=== PATIENT | male | born 1970 | race Caucasian/White ===

== ENCOUNTER 2019-11-15 22:58 | Inpatient (IN) | payer OTHER ==
[~2019-11-15] VITALS: Ht 190.5 cm; Wt 97.5 kg
[2019-11-15 23:23] LABS: BASOPHILS ABSOLUTE AUTO 0.06 K/mm3 (0.00-0.23); BASOPHILS PERCENT AUTO 1 % (0-2); EOSINOPHILS ABSOLUTE AUTO 0.27 K/mm3 (0.00-0.68); EOSINOPHILS PERCENT AUTO 4 % (0-6); Hematocrit 48.7 % (37.0-53.0); Hemoglobin 16.3 g/dL (13.5-17.5); IMMATURE GRAN PERCENT AUTO 1 % (0-1); LYMPHOCYTES ABSOLUTE AUTO 2.22 K/mm3 (0.84-5.20); LYMPHOCYTES PERCENT AUTO 29 % (21-46); MONOCYTES ABSOLUTE AUTO 0.56 K/mm3 (0.16-1.47); MONOCYTES PERCENT AUTO 7 % (4-13); Mean Corpuscular HGB 31.5 pg (26.0-34.0); Mean Corpuscular HGB Conc 33.5 g/dL (31.5-36.5); Mean Corpuscular Volume 94 fL (80-100); Mean Platelet Volume 12.5 fL (9.1-12.4); NEUTROPHILS PERCENT AUTO 58 % (41-73); Platelet Count 206 K/mm3 (150-400); RDW Coefficient Variation 12.6 % (11.7-14.2); RDW Standard Deviation 43.5 fL (35.1-46.3); Red Blood Cell Count 5.18 M/mm3 (4.30-5.90); White Blood Cell Count 7.71 K/mm3 (4.00-11.30)
[2019-11-15 23:35] LABS: Ethanol (Alcohol), Blood, Med <3 mg/dL
[2019-11-15 23:38] LABS: International Normalized Ratio 0.98; Prothrombin Time Results 10.5 Sec (9.7-11.5)
[2019-11-15 23:47] LABS: Alanine Aminotransfer (ALT/SGP 92 U/L (12-78); Albumin, Blood 4.1 g/dL (3.4-5.0); Albumin/Globulin Ratio 1.1 (0.8-1.8); Alk Phos 82 U/L (50-136); Anion Gap 7 mmol/L (6-16); Aspartate Aminotrans (AST/SGOT 68 U/L (12-37); Bilirubin, Total 0.3 mg/dL (0.1-1.0); Blood Urea Nitrogen 18 mg/dL (8-24); Bun/Creatinine Ratio 19.3 (12.0-20.0); CO2, Blood 25 mmol/L (21-32); Calcium, Blood 8.6 mg/dL (8.5-10.1); Chloride, Blood 108 mmol/L (98-108); Creatinine, Blood 0.93 mg/dL (0.60-1.20); Globulin, Blood 3.6 g/dL (2.2-4.0); Glomerular Filtration Rate >60 (60-); Glucose, Blood 180 mg/dL (70-99); Potassium, Blood 4.8 mmol/L (3.5-5.5); Sodium, Blood 140 mmol/L (136-145); Total Protein, Blood 7.7 g/dL (6.4-8.2)
[2019-11-16 00:02] LABS: PCO2 Arterial 46.5 mmHg (35-45); PO2 Arterial 84.2 mmHg (80-100); pH Blood Arterial 7.32 (7.35-7.45)
[2019-11-16 00:33] LABS: Source, Urine Catheter
[2019-11-16 00:36] LABS: Bilirubin, Urine Neg (Neg); Blood, Urine 5+ (Neg); Glucose Qualitative, Urine 1+ (Neg); Ketones, Urine 1+ (Neg); Leukocyte Esterase, Urine 1+ (Neg); Nitrite, Urine Neg (Neg); Protein, Urine 2+ (Neg); Specific Gravity, Urine 1.025 (1.003-1.022); Urobilinogen, Urine NORM (Normal)
[2019-11-16 00:41] LABS: Appearance, Urine Hazy (Clear); Color, Urine Yellow (P-Yellow)
[2019-11-16 00:42] LABS: Bacteria Mod /hpf; Mucus Light (0-Heavy); Red Blood Cells, Urine 25-50 /hpf (0-2); Squamous Epithelial Cells Few /hpf (Few)
[2019-11-16 00:48] LABS: U Amphetamine Screen Not Detected; U Barbituate Screen Not Detected; U Benzodiazapine Screen Not Detected; U Buprenorphine Screen Not Detected; U Cannabinoids Screen Not Detected; U Cocaine Screen Not Detected; U Methadone Screen Not Detected; U Methamphetamine Screen Not Detected; U Opiates Screen Not Detected; U Oxycodone Screen Not Detected; U Phencyclidine Screen DETECTED; U Propoxyphene Screen Not Detected
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
[2019-11-16 03:21] LABS: Base Excess Venous -0.5 mmol/L; Bicarbonate Venous 22.6 mmol/L (24.0-30.0); PCO2 Venous 52.6 mmHg (38-42); PO2 Venous 39.9 mmHg (38-42)
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
--- NOTE | 2019-11-16 08:00 | NUR ---
PT REMAINS SEDATED, INTUBATED, AND RESTRAINED. C-COLLAR REMAINS IN PLACE. PT MOVES EXTREMITES SPONTANEOUSLY. GRIMACE TO VOICE AND WITH TACTILE STIMULI. SOFT WRIST RESTRAINTS REMAIN IN PLACE TO PREVENT ACCIDENTAL EXTUBATION. VS WDL. ETT TO VENT: AC16, TV450, PEEP 5, FIO2 30%-PT SATS>90%. LUNGS DIMINISHED IN BASES L>R. OGT TO LIS WITH MODERATE AMOUNT OF BROWN, LIQUID DRAINAGE. CLAUDIO TO BSD WITH ADEQUATE AMOUNT OF CLEAR, YELLOW URINE OUTPUT. MULTIPLE ABRASIONS TO RIGHT SIDE. PHOTOS AND WOUND CARE DONE BY KATIE HUERTA-SEE WOUND CARE FLOW SHEET AND PHOTOS.
--- NOTE | 2019-11-16 08:25 | NUR ---
PROPOFOL DRIP TITRATED DOWN TO 25 MCG/KG/MIN IN ANTICPATION FOR SBS.
--- NOTE | 2019-11-16 09:00 | NUR ---
PROPOFOL DRIP OFF. SBT INITIATED. DR. SOLIMAN AND RT AT BEDSIDE.
--- NOTE | 2019-11-16 09:06 | NUR ---
SKIN CARE: ALL ABRASIONS (FOREHEAD, RT EAR, RT ELBOW, RT POSTERIOR/LATERAL HAND CLEANSED WITH SKIN TEGRITY, PICTURES TAKEN AND PLACED ON CHART, AND ABRASIONS COVERED WITH FOAM DRESSING.
--- NOTE | 2019-11-16 09:30 | NUR ---
PT OPENING EYES TO VOICE AND FOLLOW SOME SIMPLE COMMANDS. PT EXTUBATED AND PLACED ON RA-SATS>90%. PT ORIENTED PERSON AND AWARE THAT HE IS IN "[place]" RESTRAINTS DISCONTINUED. CALL LIGHT WITH IN REACH. PT SLEEPS WHEN NOT DISTURBED.
--- NOTE | 2019-11-16 12:00 | NUR ---
PT CONTINUES TO SLEEP MAINLY WHEN NOT DISTURBED. ORIENTED TP PERSON- UNABLE TO RECALL PLACE/EVENTS THAT OCCURED PRIOR TO HOSPITALIZATION. PT IS GENERALLY WEAK. ATTEMPTING TO FOLLOW COMMANDS. ENCOURAGED COUGH AND DEEP BREATHING. HOWEVER, PT COUGH IS VERY WEAK. LUNGS REMAIN DIMINISHED IN BASES L>R. MAINTAINS SATS>90% ON RA. RESP SHALLOW, BUT NO NOTED SOB OR INCREASED WOB. PT NPO FOR NOW.
--- NOTE | 2019-11-16 12:40 | NUR ---
DR. GRIMM UPDATED REGARDING HR TRENDING 100-110'S. ALSO, MADE AWARE THAT CLAUDIO HAD PURULENT DRAINAGE AROUND MEATUS THIS AM AND THAT URINE TO UROMETER NOW LOOKS CLOUDY. UA/CULTURE SENT ON ADMIT. NO NEW ORDERS AT THIS TIME. DR. GRIMM REQUESTS THAT DR. GONCALVES BE NOTIFIED OF ABOVE FINDINGS.
--- NOTE | 2019-11-16 15:53 | NUR ---
PT CONTINUES TO BE DROWSY. OPENS EYS TO VOICE-FOLLOWING COMMANDS. SLOW TO RESPOND. ABLE TO STATE NAME AND . AWARE THAT HE IS IN THE HOSPITAL. GENERALIZED WEAKNESS NOTED, BUT PT ABLE TO MOVE ALL 4 EXTREMITIES. LUNGS REMAIN DIMINISHED IN BASES L>R. PT COUGH EFFORT HAS IMPROVED, BUT IS STILL WEAK AND NONPRODUCTIVE. HR TRENDING 90'S. TEMP 99.3. DR. GONCALVES HERE TO SEE PT. UPDATED TO CURRENT VS ANS STATUS. AWARE OF THE PURULENT DRAINAGE AROUND THE CLAUDIO THIS AM AND OF THE CLOUDY URINE. ANTIBIOTIC ORDERED-SEE EMAR.
[2019-11-16] MEDS ORDERED: VENL150ER PO (17:06)
--- NOTE | 2019-11-16 19:10 | NUR ---
ASSUME CARE:BEDSIDE REPORT RECIEVED FROM MALCOLM OFF GOING RN. MONITOR INTACT SHOWING SINUS RHYTHM HEART RATE 80'S. AWAKENS TO VERBAL STIMULI SLOW TO RESPOND, ABLE TO STATE NAME AND BIRTHDATE. DENIES PAIN STATES" DOZES OFF EASY" LUNG SOUNDS CLEAR UPPER LOBES WITH DECREASED SOUNDS IN THE BASES RESPIRATIONS SHALLOW SPO2 94-98% ON ROOM AIR. ABDOMEN SOFT WITH BOWEL SOUNDS FOUR QUADS TEMP PROBE CLAUDIO PATENT DRIANING CLOUDY URINE. PAS TO LOWER EXTREMITIES. DRESSINGS INTACT TO ABRASIONS. FOREHEAD , KNEE ,EAR, AND ELBOW. STATES "I HAVE A BUMP ON MY HEAD" REPOSITIONS SELF IN BED. CONTINUE TO MONITOR AND REPORT CHANGE IN PATIENT CONDITION
[2019-11-17 03:47] LABS: BASOPHILS ABSOLUTE AUTO 0.04 K/mm3 (0.00-0.23); BASOPHILS PERCENT AUTO 1 % (0-2); EOSINOPHILS ABSOLUTE AUTO 0.25 K/mm3 (0.00-0.68); EOSINOPHILS PERCENT AUTO 3 % (0-6); Hematocrit 39.9 % (37.0-53.0); Hemoglobin 13.8 g/dL (13.5-17.5); IMMATURE GRAN ABSOLUTE AUTO 0.01 K/mm3 (0.00-0.10); IMMATURE GRAN PERCENT AUTO 0 % (0-1); LYMPHOCYTES ABSOLUTE AUTO 2.01 K/mm3 (0.84-5.20); LYMPHOCYTES PERCENT AUTO 23 % (21-46); MONOCYTES ABSOLUTE AUTO 0.67 K/mm3 (0.16-1.47); MONOCYTES PERCENT AUTO 8 % (4-13); Mean Corpuscular HGB 31.6 pg (26.0-34.0); Mean Corpuscular HGB Conc 34.6 g/dL (31.5-36.5); Mean Platelet Volume 11.6 fL (9.1-12.4); NEUTROPHILS ABSOLUTE AUTO 5.84 K/mm3 (1.96-9.15); NEUTROPHILS PERCENT AUTO 66 % (41-73); Platelet Count 159 K/mm3 (150-400); RDW Coefficient Variation 12.5 % (11.7-14.2); RDW Standard Deviation 41.5 fL (35.1-46.3); Red Blood Cell Count 4.37 M/mm3 (4.30-5.90); White Blood Cell Count 8.82 K/mm3 (4.00-11.30)
[2019-11-17 03:48] LABS: Mean Corpuscular Volume 91 fL (80-100)
[2019-11-17 04:05] LABS: Alanine Aminotransfer (ALT/SGP 51 U/L (12-78); Alk Phos 68 U/L (50-136); Anion Gap 6 mmol/L (6-16); Aspartate Aminotrans (AST/SGOT 33 U/L (12-37); Bilirubin, Total 0.5 mg/dL (0.1-1.0); Blood Urea Nitrogen 12 mg/dL (8-24); Bun/Creatinine Ratio 17.6 (12.0-20.0); CO2, Blood 26 mmol/L (21-32); CPK Creatine Kinase 222 U/L (39-308); Calcium, Blood 7.8 mg/dL (8.5-10.1); Chloride, Blood 112 mmol/L (98-108); Creatinine, Blood 0.68 mg/dL (0.60-1.20); Globulin, Blood 2.9 g/dL (2.2-4.0); Glomerular Filtration Rate >60 (60-); Glucose, Blood 88 mg/dL (70-99); Magnesium, Blood 1.9 mg/dL (1.6-2.4); Phosphorus, Blood 2.3 mg/dL (2.5-4.9); Potassium, Blood 3.3 mmol/L (3.5-5.5); Sodium, Blood 144 mmol/L (136-145); Total Protein, Blood 5.9 g/dL (6.4-8.2)
--- NOTE | 2019-11-17 05:57 | NUR ---
SHIFT SUMMARY: RESTS QUIETLY WHEN UNDISTURBED. MONITOR INTACT SHOWING SINUS RHYTHM. HEART RATE 70'S-80'S. LUNG SOUNDS CLEAR UPPEROBES DECREASED SOUNDS IN THE BASES. RESPRITATIONS REGULAR AND EASY ON ROOM AIR SPO2 94-98% ABDOMEN SOFT WITH BOWEL SOUNDS FOUR QUADS.PASSING FLATUS AND BELCHING TR BAND SITE CLEAR WITH OCCLUSIVE DRESSING INTACT. GAIT STEADY WITH MIN STANDBY ASSIST VOIDS ZAID URINE CONTINUE TO MONITOR AND REPORT CHANGE IN PATIENT CONDITION
--- NOTE | 2019-11-17 10:30 | NUR ---
CLAUDIO DISCONTINUED. URINAL PLACED AT BEDSIDE. CALL LIGHT WITHIN REACH. PT VERBALIZES UNDERSTANDING OF THE USE OF THE CALL SYSTEM AND WILL CALL PRN.
--- NOTE | 2019-11-17 10:54 | NUR ---
REPORT GIVEN TO KATIE TAN IN PREP TO TRANSFER PT TO ROOM 229. NO ACUTE CHANGES. PT RESTING QUIETLY WHEN NOT DISTURBED. HAS NOT VOIDED SINCE CLAUDIO DISCONTINUED.
--- NOTE | 2019-11-17 11:42 | NUR ---
PT ARRIVED TO [facility] FROM ICU TRANSFERRED W/SBA TO BED FROM . UNSTEADY ON FEET. INSTRUCTED MANAGER TRANSPORTATION LIGHT USE AND ACTIVATED BED ALARM FOR SAFETY. PT REPORTS 6/[address] GONCALVES AND OBTAINED ORDERS FOR IBUPROFEN. LCA, RESPIRATIONS E/U ON RA. BTX4. ABRASIONS TO R SIDE FOREHEAD, R ELBOW, R HAND, R KNEE. PT SLOW TO RESPOND BUT ANSWERS APPROPRIATELY.
--- NOTE | 2019-11-17 17:03 | NUR ---
SUMMARY PT ARRIVED TO UNIT FROM ICU THIS AM. REPORTED STRICKLAND AND DIZZINESS. MEDICATED PER ORDERS FOR STRICKLAND. RESTING W/EYES CLOSED AT THIS TIME. CALL LIGHT IN REACH.
[2019-11-18 04:51] LABS: Anion Gap 5 mmol/L (6-16); Blood Urea Nitrogen 11 mg/dL (8-24); CO2, Blood 28 mmol/L (21-32); Calcium, Blood 8.2 mg/dL (8.5-10.1); Chloride, Blood 108 mmol/L (98-108); Creatinine, Blood 0.74 mg/dL (0.60-1.20); Glomerular Filtration Rate >60 (60-); Glucose, Blood 90 mg/dL (70-99); Phosphorus, Blood 3.2 mg/dL (2.5-4.9); Potassium, Blood 3.5 mmol/L (3.5-5.5); Sodium, Blood 141 mmol/L (136-145)
--- NOTE | 2019-11-18 05:23 | NUR ---
SHIFT SUMMARY: PT ALERT TO SELF AND PLACE. UNABLE TO RECALL EVENT. SLOW TO RESPOND. PERRLA THROUGHOUT SHIFT. PT COMPLAINS OF HEADACHE MOST OF SHIFT. GIVEN NORCO PER EMAR WHICH WAS EFFECTIVE FOR A LITTLE WHILE. PT RESTING AT THIS TIME. VOIDING IN URINAL. FLUIDS INFUSING PER EMAR.
[2019-11-18] MEDS ORDERED: VENL150ER PO (15:29)
--- NOTE | 2019-11-18 17:21 | NUR ---
SUMMARY PT HAS HAD HEADACHE THROUGHOUT SHIFT BUT REPORTS IT IS AT ACCEPTABLE LEVEL WITH MEDS. PT ALERT AND ORIENTED, RESPONDS SLOWLY TO QUESTIONS. PT HAS DECLINED SITTING UP IN CHAIR DUE TO HEADACHE
--- NOTE | 2019-11-19 06:31 | NUR ---
Shift Summary patient slept most of the night. awoke alert and aware of self, place, following directions, surroundings, time. moves all extremeties well. patient has been using the urinal to void. no acute changes.
--- NOTE | 2019-11-19 16:53 | NUR ---
PATIENT MUCH MORE ALERT DAY PROGRESSED. PATIENT ON PHONE WITH MOM AND BROTHER MAKING ARRANGEMENTS FOR DC. THOUGT PROCESS FASTER AND PATIENT ACTUALLY SMILED. PATIENT UP TO CHAIR FOR BREAKFAST AND DINNER. INCIDENCE OF STRICKLAND MUCH LESS TODAY AND CONTROLLED WITH 1 DOSE NORCO AND MOTRIN.
--- NOTE | 2019-11-20 06:08 | NUR ---
SHIFT SUMMARY: FLORIDALMA RESTED INTERMITTENTLY DURING THE NIGHT. HE STATES THAT HE SLEPT DURING THE DAY YESTERDAY AND THEREFORE WASN'T TIRED UNTIL LATE IN THE SHIFT. HE IS A&O, ABLE TO MAKE HIS NEEDS KNOWN. HE REPORTED GOOD PAIN CONTROL WITH ONE TABLET OF NORCO, REDUCING HIS PAIN FROM 3/10 TO 1/10. HE IS TOLERATING PO INTAKE WELL. USES THE CALL LIGHT APPROPRIATELY. WILL REPORT TO DAY SHIFT RN.
--- NOTE | 2019-11-20 12:55 | NUR ---
PATIENT D/C'D HOME WITH MOM AT THIS TIME. PATIENT STATES UNDERSTANDING OF MEDS, ACTIVITY, F/U APPTS. SS ARRANGED F/U WITH PT/OT NEAR PATIENT'S HOME. PATIENT TOLERATING DIET. SLIGHT STRICKLAND CONTROLLED WITH IBUPROFEN. VOIDING. NO ACUTE CHANGES.
== END 2019-11-20 12:45 | disposition home or self-care (01) | DRG 88 ==
LOC: ER 22:58 → ICUW 11-16 02:19 → ICUE 11-16 02:19 → SURS 11-17 11:25
PROVIDERS: Emergency Medicine; Hospitalist; Internal Medicine Critical Care Medicine; Internal Medicine Pulmonary Disease; ADMIT Surgery
PROC: 5A1935Z Respiratory Ventilation, Less than 24 Consecutive Hours (ICD-10-PCS; principal; 2019-11-17)
DX: S06.0X9A Concussion with loss of consciousness of unspecified duration, initial encounter (principal); J96.90 Respiratory failure, unspecified, unspecified whether with hypoxia or hypercapnia; N39.0 Urinary tract infection, site not specified; W11.XXXA Fall on and from ladder, initial encounter; Z87.820 Personal history of traumatic brain injury
CPT/HCPCS: 31720; 36415; 36600; 51702; 70450; 71045; 71260; 72125; 74177; 80048; 80053; 81001; 82550; 82803; 83735; 84100; 85025; 85610; 85730; 86850; 86900; 86901; 87086; 90471; 90714; 93005; 93010; 94003; 96365; 96366; 96375; 96376; 97110; 97112; 97116; 97161; 97166; 97530; 97535; 99291-25; 99292; A9270-GY; G0390; G0480; J0330; J0696; J1650; J2060; J2405; J2704; J7030; J7120; Q9967

== ENCOUNTER 2020-03-28 13:34 | Emergency (ER) | payer OTHER ==
[~2020-03-28] VITALS: Ht 185.4 cm; Wt 90.7 kg
[~2020-03-28 13:34] MED LIST: CEPH500 PO; CORTIZONE-10 PL28 GM TOP; Prednisone20 MG PO; VENL150ER PO
[2020-03-28 14:25] LABS: BASOPHILS ABSOLUTE AUTO 0.07 K/mm3 (0.00-0.23); BASOPHILS PERCENT AUTO 1 % (0-2); EOSINOPHILS ABSOLUTE AUTO 1.14 K/mm3 (0.00-0.68); EOSINOPHILS PERCENT AUTO 12 % (0-6); Hemoglobin 15.8 g/dL (13.5-17.5); IMMATURE GRAN ABSOLUTE AUTO 0.07 K/mm3 (0.00-0.10); IMMATURE GRAN PERCENT AUTO 1 % (0-1); LYMPHOCYTES ABSOLUTE AUTO 2.22 K/mm3 (0.84-5.20); LYMPHOCYTES PERCENT AUTO 23 % (21-46); MONOCYTES ABSOLUTE AUTO 0.59 K/mm3 (0.16-1.47); MONOCYTES PERCENT AUTO 6 % (4-13); Mean Corpuscular HGB 30.8 pg (26.0-34.0); Mean Corpuscular HGB Conc 32.9 g/dL (31.5-36.5); Mean Corpuscular Volume 94 fL (80-100); NEUTROPHILS ABSOLUTE AUTO 5.61 K/mm3 (1.96-9.15); NEUTROPHILS PERCENT AUTO 58 % (41-73); Platelet Count 217 K/mm3 (150-400); RDW Coefficient Variation 13.1 % (11.7-14.2); RDW Standard Deviation 44.9 fL (35.1-46.3); Red Blood Cell Count 5.13 M/mm3 (4.30-5.90)
[2020-03-28 14:57] LABS: Alanine Aminotransfer (ALT/SGP 73 U/L (12-78); Albumin/Globulin Ratio 1.2 (0.8-1.8); Alk Phos 79 U/L (50-136); Anion Gap 9 mmol/L (6-16); Aspartate Aminotrans (AST/SGOT 31 U/L (12-37); Bilirubin, Total 0.5 mg/dL (0.1-1.0); Blood Urea Nitrogen 19 mg/dL (8-24); Bun/Creatinine Ratio 26.1 (12.0-20.0); CO2, Blood 24 mmol/L (21-32); Calcium, Blood 8.5 mg/dL (8.5-10.1); Chloride, Blood 107 mmol/L (98-108); Creatinine, Blood 0.73 mg/dL (0.60-1.20); Globulin, Blood 3.4 g/dL (2.2-4.0); Glomerular Filtration Rate >60 (60-); Glucose, Blood 202 mg/dL (70-99); Sodium, Blood 140 mmol/L (136-145); Total Protein, Blood 7.4 g/dL (6.4-8.2)
== END 2020-03-28 18:28 | disposition home or self-care (01) ==
LOC: ER 13:34
PROVIDERS: Physician Assistant
DX: L03.114 Cellulitis of left upper limb (principal); L25.9 Unspecified contact dermatitis, unspecified cause; Z79.899 Other long term (current) drug therapy; Z79.2 Long term (current) use of antibiotics
CPT/HCPCS: 36415; 73201; 80053; 85025; 96374-59; 96375-59; 99284-25; J0696; J2930; Q9967